=== PATIENT | female | born 1950 | race Caucasian/White ===

== ENCOUNTER 2020-04-17 10:05 | Emergency (ER) | payer MEDICARE, OTHER ==
--- NOTE | 2020-04-17 10:26 | EDM.PDOC ---
ED HPI GENERAL MEDICAL PROBLEM - General Chief Complaint: Back Pain or Injury Stated Complaint: LOWER BACK PAIN Time Seen by Provider: 04/17/20 10:26 - History of Present Illness INITIAL COMMENTS - FREE TEXT/NARRATIVE: 69-year-old female presents the emergency room with left low back and buttocks pain. This started back in January. The patient was lifting some and after this developed some pain in her very low left back. The symptoms have come and gone but never completely resolved. The pain seems to be getting a little worse. The patient saw her regular provider who had her take 2 ibuprofen twice a day and this helps a little bit except when they wear off. She has not tried anything else for this pain. The patient denies any burning or frequency with urination no flank pain no abdominal pain. No loss of bowel or bladder control. Lower Back Pain Score (Numeric/FACES): 8 - Related Data Allergies Allergy/AdvReac Type Severity Reaction Status Date / Time No Known Allergies Allergy Verified 04/17/20 10:17 Home Meds: Home Meds Losartan/Hydrochlorothiazide [Losartan-HCTZ 100-12.5 MG] 1 tab PO DAILY 04/17/20 [History] metFORMIN [Glucophage XR] 500 mg PO DAILY 04/17/20 [History] Past Medical History Cardiovascular History: Reports: Hypertension Endocrine/Metabolic History: Reports: Diabetes, Type II - Past Surgical History HEENT Surgical History: Reports: Eye Surgery Social & Family History - Tobacco Use Tobacco Use Status *Q: Current Every Day Tobacco User Years of Tobacco use: 46 Packs/Tins Daily: 0.5 - Recreational Drug Use Recreational Drug Use: No ED ROS GENERAL - Review of Systems Review Of Systems: See Below Constitutional: Reports: No Symptoms Respiratory: Reports: No Symptoms Cardiovascular: Reports: No Symptoms Endocrine: Reports: No Symptoms GI/Abdominal: Reports: No Symptoms : Reports: No Symptoms ED EXAM,LOWER BACK PAIN/INJURY - Physical Exam Exam: See Below Exam Limited By: No Limitations General Appearance: Alert, No Apparent Distress Head: Atraumatic, Normocephalic Neck: Normal Inspection, Supple, Non-Tender, Full Range of Motion Respiratory/Chest: No Respiratory Distress, Lungs Clear, Normal Breath Sounds Cardiovascular: Regular Rate, Rhythm, No Edema, No Murmur GI/Abdominal: Normal Bowel Sounds, Soft, Non-Tender Back Exam: Normal Inspection. No: CVA Tenderness (L), CVA Tenderness (R), Vertebral Tenderness Extremities: Other (Straight leg raises minimally aggravate the discomfort. She is not having any numbness or tingling into her legs.) Course - Vital Signs Last Recorded V/S: Last Vital Signs Temp 36.6 C 04/17/20 10:14 Pulse 106 H 04/17/20 10:14 Resp 16 04/17/20 10:14 BP 146/59 H 04/17/20 10:14 Pulse Ox 94 L 04/17/20 10:14 - Orders/Labs/Meds Orders: Active Orders 24 hr Category Date Time Status Acetaminophen [TylenoL] Med 04/17/20 10:55 Once 975 mg PO NOW ONE - Re-Assessments/Exams Free Text/Narrative Re-Assessment/Exam: 04/17/20 11:02 I do not believe imaging will be of any benefit at this point. Discussed management with the patient and I would prefer at her age and with her hypertension and diabetes she not use ibuprofen I have recommended she can use Tylenol 2 extra strength 4 times a day. I enforced this is her maximum dose she is willing to give this a try. I have also recommended physical therapy if this does not help significantly. Departure - Departure Time of Disposition: 11:03 Disposition: Home, Self-Care 01 Clinical Impression: Back pain - Discharge Information Referrals: Brooke Flynn NP [Primary Care Provider] - Forms: ED Department Discharge Additional Instructions: Return to the emergency room with any questions problems or worsening symptoms. Use Tylenol, 2 extra strength, or 1000 mg each tablet should contain 500 mg. Take 2 every 6 hours no more than 4 times a day. Follow-up with your regular healthcare provider the middle of next week for recheck. If not improving consider physical therapy to help get your back doing better. Sepsis Event Note (ED) - Evaluation Sepsis Screening Result: No Definite Risk - Focused Exam Vital Signs: Vital Signs Temp Pulse Resp BP Pulse Ox 04/17/20 10:14 36.6 C 106 H 16 146/59 H 94 L - My Orders Last 24 Hours: My Active Orders 04/17/20 10:55 Acetaminophen [TylenoL] 975 mg PO NOW ONE - Assessment/Plan Last 24 Hours: My Active Orders 04/17/20 10:55 Acetaminophen [TylenoL] 975 mg PO NOW ONE
[2020-04-17] MEDS ORDERED: Acetaminophen 325 MG Tab PO ONE (10:55)
== END 2020-04-17 11:54 | disposition home or self-care (01) ==
LOC: JD.ED 10:05
DX: M54.5 Low back pain (principal); I10 Essential (primary) hypertension; E11.9 Type 2 diabetes mellitus without complications; Z79.84 Long term (current) use of oral hypoglycemic drugs; Z72.0 Tobacco use; Z79.899 Other long term (current) drug therapy
CPT/HCPCS: 99283; A9270